=== PATIENT | female | born 1950 | race Caucasian/White ===

== ENCOUNTER → 2018-03-13 12:22 | Outpatient (CLI) | payer MEDICARE, OTHER, SELFPAY ==
[2018-03-13 15:51] LABS: Absolute Lymphocyte Count 1.84 X10^3/ul (0.83-4.51); Absolute Neutrophil Count 3.9 X10^3/uL (2.0-7.7); Basophil# 0.04 X10^3/uL; Basophil% 0.6 % (0-1); Eosinophil# 0.05 X10^3/uL; Eosinophils% 0.8 % (0-5); Hematocrit 41.6 % (37-47); Hemoglobin 13.8 g/dl (12.0-15.0); Lymphocyte # 1.84 X10^3/ul (4.0); Lymphocyte % 29.1 % (19-41); Mean Corp Hgb Conc 33.2 g/gl (32-36); Mean Corpuscular Hgb 30.8 pg (27.0-32.0); Mean Corpuscular Volume 92.9 fL (81-99); Mean Platelet Vol. 11.9 fl (6.2-12.0); Monocyte# 0.46 X10^3/uL; Monocyte% 7.3 % (0-10); Neutrophil # 3.92 X10^3/uL (2.7-7.7); Platelet Count 232 K/mm3 (150-450); RBC Distribution Width CV 12.8 % (11.6-14.6); RBC Distribution Width SD 42.7 fl (35.1-43.9); Red Blood Count 4.48 M/mm3 (4.2-5.4); White Blood Count 6.3 K/mm3 (4.4-11.0)
[2018-03-13 16:00] LABS: POSITIVE COUNT NO; POSITIVE DIFFERENTIAL NO; POSITIVE MORPHOLOGY NO
[2018-03-13 16:03] LABS: AST(SGOT) 21 U/L (15-37); Alanine Aminotransfer ALT/SGPT 24 U/L (13-56); Albumin, Serum 3.9 g/dL (3.2-5.0); Alkaline Phosphatase 74 U/L (45-117); Anion Gap 9 (5-15); BUN 14 mg/dL (7-18); BUN/Creat Ratio 15.6 RATIO (10-20); Chloride 104 mmol/L (98-107); Cholesterol 176 mg/dL (200); EST Glomerular Filtration Rate 66 mL/min (>60); Est Glom Filt Rate - Afr Amer 80 mL/min (>60); Ferritin 87 ng/mL (8-252); Globulin 3.9 g/dL (2.2-4.2); Glucose 88 mg/dL (74-106); High Density Lipoprotein 52 mg/dL; Iron 64 ug/dL (50-170); Potassium 4.3 mmol/L (3.5-5.1); Protein, Total 7.8 g/dL (6.4-8.2); Sodium Level 142 mmol/L (136-145); Triglycerides 125 mg/dL; Very Low Density Lipoprotein 25 mg/dL (5-40)
[2018-03-14 09:49] LABS: Vitamin B12 574 pg/mL (211-911)
== END ==
PROVIDERS: Family Provider Family Medicine; PCP Family Medicine; Visit Provider Family Medicine
DX: Z00.01 Encounter for general adult medical examination with abnormal findings (principal); I10 Essential (primary) hypertension; D64.9 Anemia, unspecified
CPT/HCPCS: 36415; 80053; 80061; 82607; 82728; 83540; 85025

== ENCOUNTER → 2018-11-26 06:56 | Outpatient (CLI) | payer MEDICARE, OTHER, SELFPAY ==
[2018-10-31 09:11] VITALS: BMI 33.8
--- NOTE | 2018-11-26 07:03 | BI_ITS ---
MAMMOGRAPHY - BILATERAL SCREENING 3-D TOMOSYNTHESIS REASON FOR EXAM: Female, 68 years old. Bilateral Screening 3-D tomosynthesis PERTINENT HISTORY: No significant family history. TECHNIQUE: 2-D mammograms and 3-D Tomosynthesis of the breast (s) were performed. CAD was performed. COMPARISON: February 01, 2017 FINDINGS: The breast composition is composed of scattered fibroglandular density. Scattered benign calcifications are seen. No dense spiculated masses or suspicious microcalcifications are identified. No architectural distortion is identified. There is no skin thickening or retraction. There has been no significant change since the prior study. BI/SCREEN MAMM (CAD) W/NIC BILAT IMPRESSION: No mammographic signs of malignancy. Routine yearly mammograms recommended. ASSESSMENT CATEGORY: BIRADS Category 1: Negative. A letter regarding these results will be sent to the patient by the facility within 30 days. FOLLOW UP RECOMMENDATION: Yearly follow up mammogram recommended. (A) Approximately 10% of breast cancers are not detected by mammography. A normal mammogram should not delay biopsy of a clinically suspicious abnormality. Electronically Signed: Kirit Solares MD at 12:42 EDT , Service support ,
== END ==
PROVIDERS: Family Provider Family Medicine; PCP Family Medicine; Referring Provider Nurse Practitioner Women's Health; Visit Provider Nurse Practitioner Women's Health
DX: Z12.31 Encounter for screening mammogram for malignant neoplasm of breast (principal)
CPT/HCPCS: 77063; 77067

== ENCOUNTER → 2019-03-19 12:30 | Outpatient (CLI) | payer MEDICARE, OTHER, SELFPAY ==
[2018-10-31 09:11] VITALS: BMI 33.8
[2019-03-19 13:48] LABS: Absolute Lymphocyte Count 1.94 X10^3/uL (0.83-4.51); Absolute Neutrophil Count 4.5 X10^3/uL (2.0-7.7); Basophil# 0.05 X10^3/uL; Basophil% 0.7 % (0-1); Eosinophil# 0.04 X10^3/uL; Eosinophils% 0.6 % (0-5); Hematocrit 40.7 % (37-47); Hemoglobin 13.5 g/dL (12.0-15.0); Lymphocyte # 1.94 X10^3/ul (4.0); Lymphocyte % 27.4 % (19-41); Mean Corp Hgb Conc 33.2 g/dL (32-36); Mean Corpuscular Hgb 30.5 pg (27.0-32.0); Mean Corpuscular Volume 92.1 fL (81-99); Mean Platelet Vol. 11.1 fl (6.2-12.0); Monocyte# 0.56 X10^3/uL; Monocyte% 7.9 % (0-10); NRBC Flagged by Analyzer 0 % (0-5); Neutrophil # 4.46 X10^3/uL (2.7-7.7); Neutrophil % 63.1 % (47-70); Platelet Count 254 K/mm3 (150-450); RBC Distribution Width CV 12.7 % (11.6-14.6); RBC Distribution Width SD 42.6 fl (35.1-43.9); Red Blood Count 4.42 M/mm3 (4.2-5.4); White Blood Count 7.1 K/mm3 (4.4-11.0)
[2019-03-19 14:01] LABS: AST(SGOT) 22 U/L (15-37); Alanine Aminotransfer ALT/SGPT 23 U/L (13-56); Albumin, Serum 3.9 g/dL (3.2-5.0); Alkaline Phosphatase 76 U/L (45-117); Anion Gap 5 (5-15); BUN 15 mg/dL (7-18); BUN/Creat Ratio 17.7 RATIO (10-20); Calcium,Total 8.7 mg/dL (8.5-10.1); Chloride 105 mmol/L (98-107); Cholesterol 173 mg/dL (200); Creatinine, Serum 0.85 mg/dL (0.55-1.02); EST Glomerular Filtration Rate 71 mL/min (>60); Est Glom Filt Rate - Afr Amer 86 mL/min (>60); Globulin 3.8 g/dL (2.2-4.2); Glucose 91 mg/dL (74-106); High Density Lipoprotein 51 mg/dL; Protein, Total 7.7 g/dL (6.4-8.2); Sodium Level 138 mmol/L (136-145); Triglycerides 133 mg/dL; Very Low Density Lipoprotein 27 mg/dL (5-40)
[2019-03-19 17:52] LABS: Microalbumin,Random Urine 15.7 mg/L (NO RANGE EST.); Microalbumin:Creatinine Ratio 12.5 mg/g CRE (<30 mg/g CRE)
== END ==
PROVIDERS: Family Provider Family Medicine; PCP Family Medicine; Referring Provider Family Medicine; Visit Provider Family Medicine
DX: I10 Essential (primary) hypertension (principal); Z51.81 Encounter for therapeutic drug level monitoring
CPT/HCPCS: 36415; 80053; 80061; 82043; 82570; 85025

== ENCOUNTER → 2020-06-01 08:54 | Outpatient (CLI) | payer MEDICARE, OTHER, SELFPAY ==
[2020-05-06 09:09] VITALS: BMI 37.1
[2020-06-01 12:29] LABS: Absolute Lymphocyte Count 1.93 X10^3/uL (0.83-4.51); Absolute Neutrophil Count 3.8 X10^3/uL (2.0-7.7); Basophil# 0.06 X10^3/uL; Basophil% 0.9 % (0-1); Eosinophil# 0.06 X10^3/uL; Eosinophils% 0.9 % (0-5); Hematocrit 41.7 % (37-47); Hemoglobin 13.1 g/dL (12.0-15.0); Lymphocyte # 1.93 X10^3/ul (4.0); Mean Corp Hgb Conc 31.4 g/dL (32-36); Mean Corpuscular Hgb 29.9 pg (27.0-32.0); Mean Corpuscular Volume 95.2 fL (81-99); Mean Platelet Vol. 11.5 fl (6.2-12.0); Monocyte# 0.62 X10^3/uL; Monocyte% 9.6 % (0-10); NRBC Flagged by Analyzer 0 % (0-5); Neutrophil # 3.76 X10^3/uL (2.7-7.7); Neutrophil % 58.4 % (47-70); Platelet Count 280 K/mm3 (150-450); RBC Distribution Width CV 12.7 % (11.6-14.6); RBC Distribution Width SD 44.7 fl (35.1-43.9); Red Blood Count 4.38 M/mm3 (4.2-5.4); White Blood Count 6.4 K/mm3 (4.4-11.0)
[2020-06-01 12:36] LABS: AST(SGOT) 14 U/L (15-37); Alanine Aminotransfer ALT/SGPT 17 U/L (13-56); Albumin, Serum 3.9 g/dL (3.2-5.0); Alkaline Phosphatase 74 U/L (45-117); Anion Gap 7 (5-15); BUN 19 mg/dL (7-18); BUN/Creat Ratio 24.4 RATIO (10-20); Calcium,Total 9.3 mg/dL (8.5-10.1); Chloride 105 mmol/L (98-107); Cholesterol 161 mg/dL (200); Creatinine, Serum 0.78 mg/dL (0.55-1.02); EST Glomerular Filtration Rate 78 mL/min (>60); Est Glom Filt Rate - Afr Amer 94 mL/min (>60); Globulin 3.8 g/dL (2.2-4.2); Glucose 94 mg/dL (74-106); High Density Lipoprotein 54 mg/dL; Potassium 4.7 mmol/L (3.5-5.1); Protein, Total 7.7 g/dL (6.4-8.2); Sodium Level 141 mmol/L (136-145); Triglycerides 98 mg/dL; Very Low Density Lipoprotein 20 mg/dL (5-40)
[2020-06-01 14:05] LABS: Vitamin D,25 Hydroxy 18.5 ng/mL
[2020-06-01 15:43] LABS: Microalbumin,Random Urine 14.6 mg/L (NO RANGE EST.); Microalbumin:Creatinine Ratio 15.3 mg/g CRE (<30 mg/g CRE)
== END ==
PROVIDERS: PCP Family Medicine; Visit Provider Family Medicine
DX: I10 Essential (primary) hypertension (principal); M85.80 Other specified disorders of bone density and structure, unspecified site; Z51.81 Encounter for therapeutic drug level monitoring
CPT/HCPCS: 36415; 80053; 80061; 82043; 82306; 82570; 85025

== ENCOUNTER 2020-10-08 17:25 | Outpatient (RCR) | payer MEDICARE, OTHER, SELFPAY ==
[2020-05-06 09:09] VITALS: BMI 37.1
[2020-10-08] MEDS: COVID-19 VACC, MRNA(PFIZER)/PF 30 MCG/0.3 ML SYRINGE IM (10:10)
[2020-10-29] MEDS: COVID-19 VACC, MRNA(PFIZER)/PF 30 MCG/0.3 ML SYRINGE IM (10:04)
== END 2020-10-08 23:59 ==
LOC: IMMUN 17:25
PROVIDERS: PCP Family Medicine; Referring Provider Family Medicine; Visit Provider Family Medicine
DX: Z23 Encounter for immunization (principal)
CPT/HCPCS: 0001A; 0002A

== ENCOUNTER → 2020-11-30 08:32 | Outpatient (CLI) | payer MEDICARE, OTHER, SELFPAY ==
[2020-11-05 12:53] VITALS: BMI 36.1
--- NOTE | 2020-11-30 08:39 | BI_ITS ---
MAMMOGRAPHY - BILATERAL SCREENING REASON FOR EXAM: Female, 70 years old. Routine annual screening examination. PERTINENT HISTORY: Non-contributory. TECHNIQUE: Digital bilateral breast nic (3D mammographic acquisition) in the CC and MLO projections. 2-D mediolateral oblique (MLO) and craniocaudad (CC) views of both breasts were obtained. CAD: Full Field Digital Mammography with Computer Added Detection was performed. COMPARISON: Comparison is made with prior study dated 11/26/2018. FINDINGS: Breast Composition: There are scattered areas of fibroglandular density. There are no dominant masses or suspicious calcifications. Stable benign-appearing bilateral axillary lymph node. No other significant abnormalities are identified. There has been no significant change since the prior study. BI/SCRN MAMM (CAD)W/NIC BILAT IMPRESSION: Stable bilateral screening mammogram. Yearly follow-up mammogram recommended. (A) ASSESSMENT CATEGORY: BIRADS Category 2: Benign. A letter regarding these results will be sent to the patient by the facility within 30 days. Approximately 10% of breast cancers are not detected by mammography. A normal mammogram should not delay biopsy of a clinically suspicious abnormality. [id number] Electronically Signed: Moses Elliott MD at 9:24 EDT , Service support ,
== END ==
PROVIDERS: PCP Family Medicine; Referring Provider Nurse Practitioner Women's Health; Visit Provider Nurse Practitioner Women's Health
DX: Z12.31 Encounter for screening mammogram for malignant neoplasm of breast (principal)
CPT/HCPCS: 77063; 77067

== ENCOUNTER 2021-07-19 10:00 | Outpatient (RCR) | payer MEDICARE, OTHER, SELFPAY ==
--- NOTE | 2021-05-31 11:37 | HP.PTEVAL_ITS ---
Patient's Visit Information ITA MARY is a 70 year old F referred to Physical Therapy by OLIVE Ho with a diagnosis of B shoulder Impingement. Date of Evaluation: 05/31/21 Physical Therapist: IFTIKHAR Fisher - Visit Plan Frequency: 2x /Week Duration: 4 Weeks Plan: 2X/ week for 3-4 weeks for scapular and postural strength, RC strengthening, with HEP. HEP: orange mid rows, corner stretch, Double ER with orange band - Subjective Pt went to and did ex-rays and has a little bit of arthritis. Dr said could have RC tear but most people over 60 have it. She has had B cortizone shots 10 days ago but she can do things now but it is not perfect. Putting things over her head, reach in freezer, grabbing for seatbelt, pulling vaccum back, pulling into mircrowave all hurt. Now she can sleep but could not before. Her L shoulder is worse than the R and she is R handed. She was lifting repetive totes about 8 weeks ago and that it what the Dr thinks started it all up. She can sleep on B shoulders and does feel it and shifts positions. She has some N&t a few times but not consistent. No neck pain. - Pain B shoulder pain Pain Intensity (Out of 10): 0 Comment: with movement 10 - Objective R handed R 40# and L 40#. B shoulder flexion approx 160 degrees B, B shoulder abd approx 165 degrees, R T8 and L T12 IR, and B shoulder ER WFL. +HK and test for impingement test on the L. Very slight if any on the R. R shoulder MMT: flex 4/5, abd 4-/5, IR 4/5, ER 4-/5. L shld MMT: flex 4-/5, abd 4-/5, ER 4-/5 and IR 4/5. Pt was tender to palpation under B acromin. Posture: rounded shoulders - Balance/Special Test Scores Quick DASH Score: 25.0000 - Goals Goal 1:: I HEP Goal Time Frame: 2-4 Weeks Goal 2:: Decrease freq of L shoulder bothering her with ADL's such as reaching, putting on seatbelt and laying on the L side in bed by 50% or 2/10. Goal Time Frame: 2-4 Weeks Goal 3:: Sit with upright posture during treatment sessions - Rehabilitation Potential Rehabilitation Potential: Good - Anticipated Interventions Patient/Client Instruction: Educate patient on: Condition, Plan of Care For the Purpose of:: To decrease pain, To increase ROM, To improve nutrient delivery to tissue, To improve muscle performance and motor function, To improve ability to perform ADL's, To increase tolerance to activity/condition/position, To improve performance and independence with ADL's, To improve health of tissue, To decrease soft tissue restriction, To increase flexibility/ROM Therapeutic Exercise to Include: Strength training, Postural training, Flexibilty training, Passive ROM, Active ROM, Scapular Strength/Stabilization For the Purpose of:: To decrease pain, To increase ROM, To improve nutrient delivery to tissue, To improve muscle performance and motor function, To improve ability to perform ADL's, To increase tolerance to activity/condition/position, To improve performance and independence with ADL's, To improve health of tissue, To decrease soft tissue restriction Manual Therapy Techniques to Include: Passive ROM, Soft tissue mobilization For the Purpose of:: To decrease pain, To increase ROM Thank you for the opportunity to evaluate your patient. For Medicare and Medicare HMO plans, please review the plan of care and approve it. It will need to be FAXED BACK to us at [phone] for Medicare purposes. For Medicare only, by signing this I certify the plan of care. Please let me know if there are questions or concerns regarding this plan of care. Physician Signatu re: Date:
--- NOTE | 2021-07-19 10:30 | HP.PTDCSUM ---
It has been my pleasure to treat ITA MARY referred by OLIVE Ho, with the diagnosis of B shoulder Impingement for a total of 16 visit(s). Discharge Date: 07/19/21 Please see the following information for a summary of their discharge status. Subjective: Occ she gets numbness in the L hand but it does not last long but was not getting that before. Pt wants to keep doing her HEP and if it is not better by the begining of the year she will go back to the Dr and get an MRI. She struggles with reaching into a cupboard with her L shoulder but not on her R side. B shoulder pain Pain Intensity (Out of 10): 3 L shoulder Pain Intensity (Out of 10): 3 R shoulder Pain Intensity (Out of 10): 1 % Improvement: 80 Objective/Function: Pain on the L with resisted motion and pain with full AROM abduction and flexion on the L. Pt has full AROM B shoulder flexion some tightness and pain at end range abd and ER. Pt has increase pain on the L with MMT of the L ER (3+), FLEX(4-), ABD(3+), IR (4-) Goal 1:: I HEP Goal Progress: Goal Met Goal 2:: Decrease freq of L shoulder bothering her with ADL's such as reaching, putting on seatbelt and laying on the L side in bed by 50% or 2/10. Goal Progress: Goal Met Goal 3:: Sit with upright posture during treatment sessions Goal Progress: Goal Met Plan: DC PT to HEP Discharge Comments: DC PT to HEP If there are questions or concerns regarding this patient's physical therapy, please feel free to call me at [phone]. Thank you for the referral of this patient. Sincerely, Zonia Tirado, MPT Balance/Gait/Functional tests - Balance/Special Test Scores Quick DASH Score: 29.5450
== END 2021-07-19 19:00 | disposition home or self-care (01) ==
LOC: PT 10:00
PROVIDERS: PCP Family Medicine; Visit Provider Physician Assistant
DX: M25.811 Other specified joint disorders, right shoulder (principal); M25.812 Other specified joint disorders, left shoulder
CPT/HCPCS: 97035; 97110; 97161; 97530

== ENCOUNTER → 2022-06-10 | Outpatient (CLI) | payer MEDICARE, OTHER, SELFPAY ==
--- NOTE | 2022-06-10 10:26 | BI_ITS ---
MAMMOGRAPHY - BILATERAL SCREENING REASON FOR EXAM: Female, 71 years old. Routine annual screening examination. PERTINENT HISTORY: Non-contributory. TECHNIQUE: Digital bilateral breast nic (3D mammographic acquisition) in the CC and MLO projections. 2-D mediolateral oblique (MLO) and craniocaudad (CC) views of both breasts were obtained. CAD: Full Field Digital Mammography with Computer Added Detection was performed. COMPARISON: Comparison is made with prior study dated 11/30/2020 and 11/26/2018. FINDINGS: Breast Composition: There are scattered areas of fibroglandular density. There are no dominant masses or suspicious calcifications. Stable small benign-appearing bilateral axillary lymph nodes. No other significant abnormalities are identified. There has been no significant change since the prior study. BI/SCRN MAMM (CAD)W/NIC BILAT IMPRESSION: Stable bilateral screening mammogram. Yearly follow-up mammogram recommended. (A) ASSESSMENT CATEGORY: BIRADS Category 2: Benign. A letter regarding these results will be sent to the patient by the facility within 30 days. Approximately 10% of breast cancers are not detected by mammography. A normal mammogram should not delay biopsy of a clinically suspicious abnormality. [id number] Electronically Signed: Moses Elliott MD at 12:24 EDT ,
== END | disposition home or self-care (01) ==
LOC: OPBI 10:25
PROVIDERS: PCP Family Medicine; Referring Provider Nurse Practitioner Women's Health; Visit Provider Nurse Practitioner Women's Health
DX: Z12.31 Encounter for screening mammogram for malignant neoplasm of breast (principal)
CPT/HCPCS: 77063; 77067

== ENCOUNTER → 2022-08-09 | Outpatient (CLI) | payer MEDICARE, OTHER, SELFPAY ==
[2022-08-09 12:21] LABS: Absolute Lymphocyte Count 2.19 X10^3/uL (0.83-4.51); Absolute Neutrophil Count 4.7 X10^3/uL (2.0-7.7); Basophil# 0.06 X10^3/uL; Basophil% 0.8 % (0-1); Eosinophil# 0.13 X10^3/uL; Eosinophils% 1.6 % (0-5); Hematocrit 43.5 % (37-47); Hemoglobin 14.7 g/dL (12.0-15.0); Lymphocyte # 2.19 X10^3/ul (0.83-4.51); Lymphocyte % 27.6 % (19-41); Mean Corp Hgb Conc 33.8 g/dL (32-36); Mean Corpuscular Hgb 31.4 pg (27.0-32.0); Mean Corpuscular Volume 92.9 fL (81-99); Mean Platelet Vol. 11.3 fl (6.2-12.0); Monocyte# 0.79 X10^3/uL; NRBC Flagged by Analyzer 0 % (0-5); Neutrophil # 4.74 X10^3/uL (2.7-7.7); Neutrophil % 59.7 % (47-70); Platelet Count 306 K/mm3 (150-450); RBC Distribution Width CV 12.7 % (11.6-14.6); RBC Distribution Width SD 43.6 fl (35.1-43.9); Red Blood Count 4.68 M/mm3 (4.2-5.4); White Blood Count 7.9 K/mm3 (4.4-11.0)
[2022-08-09 12:58] LABS: AST(SGOT) 19 U/L (15-37); Alanine Aminotransfer ALT/SGPT 28 U/L (13-56); Albumin, Serum 3.8 g/dL (3.2-5.0); Alkaline Phosphatase 85 U/L (45-117); Anion Gap 7 (5-15); BUN 18 mg/dL (7-18); BUN/Creat Ratio 21.8 RATIO (10-20); Calcium,Total 9.7 mg/dL (8.5-10.1); Chloride 103 mmol/L (98-107); Cholesterol 211 mg/dL (200); Creatinine, Serum 0.83 mg/dL (0.55-1.02); EST Glomerular Filtration Rate 72 mL/min (>60); Est Glom Filt Rate - Afr Amer 87 mL/min (>60); Globulin 3.9 g/dL (2.2-4.2); Glucose 103 mg/dL (74-106); High Density Lipoprotein 52 mg/dL; Potassium 4.8 mmol/L (3.5-5.1); Protein, Total 7.7 g/dL (6.4-8.2); Sodium Level 139 mmol/L (136-145); Triglycerides 171 mg/dL; Very Low Density Lipoprotein 34 mg/dL (5-40)
== END | disposition home or self-care (01) ==
LOC: BFHLAB 09:03
PROVIDERS: PCP Family Medicine; Visit Provider Family Medicine
DX: I10 Essential (primary) hypertension (principal)
CPT/HCPCS: 36415; 80053; 80061; 85025

== ENCOUNTER 2022-09-13 10:00 | Outpatient (RCR) | payer MEDICARE, OTHER, SELFPAY ==
--- NOTE | 2022-07-19 12:27 | HP.PTEVAL_ITS ---
Patient's Visit Information ITA MARY is a 72 year old F referred to Physical Therapy by Dr. Tala Garza MD with a diagnosis of MIXED URINARY INCONTINENCE. Date of Evaluation: 07/19/22 Physical Therapist: Alisia Cabral PT, Cert MDT - Visit Plan Frequency: 1x/Week Duration: 6-8 WKS Plan: URINARY URGE AND FREQUENCY EDUCATION. HEALTHY BLADDER HABBIT EDUCATION. PF STRENGTHENING. TRAINING IN COORDINATION OF PELVIC FLOOR MUSCULATURE WITH HIP AND CORE (TRANSVERSE ABDOMINUS) MUSCULATURE. POSTURE CORRECTION/STRENGTHENING. CORE STRENGTHENING. NEMESIO LE ROM, STRETCHING AND STRENGTHENING. TRAINING IN ABDOMINAL CAVITY PRESSURE MGMT WITH ADL'S. - Subjective Work/Leisure: RETIRED. Present symptoms: PATIENT REPORTS SHE IS HERE FOR LIGHT BLADDER LEAKAGE. DENIES PELVIC, BACK AND HIP PAIN. Present since: I HAVE WORN A PAD FOR YEARS BUT RECENTLY I HAVE BEEN GETTING IT MORE AT NIGHT AND IF I DON'T GET UP RIGHT AWAY I HAVE AN ACCIDENT. Pain Scale: NO. Is it getting better, worse or staying the same: GETTING WORSE. Commenced as a result of: NO APPARENT REASON. Worse: MAYBE SOME FOODS/DRINKS MAKE IT WORSE. Better: UNSURE. Disturbed sleep: YES - WAS NEEDING TO GET UP 2-3 TIMES A NIGHT TO GO BUT NOW DOWN TO ABOUT ONE TIME. Previous history/Previous treatment: NO PRIOR TREATMENTS FOR INCONTINENCE. NO BACK OR HIP SURGERIES OR INJECTIONS. Treatment this episode: DIET CHANGE RECOMMENDATIONS, ESTROGEN VAGINAL CREAM (PATIENT THINKS THIS HAS HELPED. HAS BEEN ON IT FOR 2 MONTHS). Coughing/sneezing/straining: POSITIVE FOR URINARY LEAKING AND THIS IS WHY SHE HAS WORN A PAD FOR YEARS. Gait: NORMAL. Bowel INCONTINENCE: NO. Unexplained weight loss: NO. Imaging: ABDOMINAL US AND URINALYSIS - NORMAL PER PATIENT REPORT. - Objective Sitting/Standing Posture: REDUCED LUMBAR LORDOSIS. NO RELEVENT LATERAL SHIFT. Other Observations: INDEP GAIT AND TRANSFERS. Sensory deficit: NEMESIO LE LIGHT TOUCH SENSATION IS GROSSLY INTACT AND SYMMETRICAL. ROM deficit: TIGHT NEMESIO HIPS ALL PLANES. PATIENT ALSO WITH TIGHT NEMESIO HS'S AND GASTROC SOLEUS COMPLEX'S. Motor deficit: NEMESIO LE'S GROSSLY 5/5 WITH MMT'ING EXCEPT HIPS 4/5. Dural Signs: NEGATIVE NEMESIO LE'S. Lumbar mvmt loss: flex - MIN. ext - LEATHA. R SG - LEATHA. L SG - LEATHA. PATIENT DENIES PAIN WITH LUMBAR ROM TESTING ALL PLANES. Core strength: POOR. Palpation: NO EXTERNAL PELVIC TENDERNESS. MANUAL INTERNAL VAGINAL PELVIC FLOOR EXAM REVEALS 3/5 STRENGTH WITH 4 SEC ENDURANCE AND NO TENDERNESS WITH PF PALPATION. FUNCTIONAL SCREEN: Incontinence Impact Questionnaire Score: 0. Urogenital Distress Inventory Score: 5. TREATMENT: HEP INSTRUCTION IN KEGEL QUICK FLICKS X 8, 3 TIMES A DAY. WRITTEN HEP PROVIDED. INSTRUCTED NOT TO DO KEGELS DURING MICTURITION. - Goals Goal 1:: DECREASE URINARY LEAKAGE EPISODES TO ONE OR LESS PER DAY/NIGHT Goal Time Frame: 6-8 Weeks Goal 2:: PATIENT WILL SUCCESSFULLY DELAY VOIDING FOR 60 MINUTES WHEN URGENCY OCCURS Goal Time Frame: 4-6 Weeks Goal 3:: PATIENT WILL HAVE INCREASED PELVIC FLOOR MUSCLE STRENGTH GRADE TO 5/5 Goal Time Frame: 4-6 Weeks Goal 4:: PATIENT WILL DEMONSTRATE 10 CONSISTENT AND CONSECUTIVE 10 SECOND PELVIC FLOOR MUSCLE CONTRACTIONS TO DEMONSTRATE IMPROVED PELVIC FLOOR ENDURANCE. Goal Time Frame: 6-8 Weeks Goal 5:: DEVELOP HEALTHY FLUID INTAKE HABITS WITH FLUID INTAKE OF ? BODY WEIGHT IN OUNCES PER DAY AND 2/3 BEING WATER. NORMALIZE VOIDING FREQUENCEY TO EVERY 3- 4 HOURS. Goal Time Frame: 2-4 Weeks Goal 6:: PATIENT WILL BE INDEP WITH A HEP/HOME INSTRUCTIONS FOR CONTINUED IMPROVEMENT ONCE FORMAL PHYSICAL THERAPY CONCLUDES. Goal Time Frame: 6-8 Weeks - Anticipated Interventions Patient/Client Instruction: Educate patient on: Condition, Plan of Care, Risk Factors For the Purpose of:: To improve self management Therapeutic Exercise to Include: Strength training, Endurance training, Postural training, Flexibilty training, Neuromotor development For the Purpose of:: To increase ROM, To improve muscle performance and motor function, To increase tolerance to activity/condition/position Thank you for the opportunity to evaluate your patient. For Medicare and Medicare HMO plans, please review the plan of care and approve it. It will need to be FAXED BACK to us at [phone] for Medicare purposes. For Medicare only, by signing this I certify the plan of care. Please let me know if there are questions or concerns regarding this plan of care. Physician Signature: Date:
--- NOTE | 2022-09-13 10:40 | HP.PTDCSUM_ITS ---
It has been my pleasure to treat ITA MARY referred by Dr. Tala Garza MD, with the diagnosis of MIXED URINARY INCONTINENCE for a total of 8 visit(s). Discharge Date: 09/13/22 Please see the following information for a summary of their discharge status. Subjective: PATIENT REPORTS SHE IS NOT HAVING LEAKING DURING THE DAY EVEN WITH SNEEZING NOW. ALSO REPORTS SHE IS ONLY GETTING UP TO URINATE ONE TIME PER NIGHT NOW. REPORTS COMPLIANCE WITH HEP. VOIDING 6-7 TIMES A DAY NOW AT 3-4 HOUR INTERVALS. PATIENT REPORTS SHE IS NOT LEAKING IN BED AND NOT WORRIED ABOUT GETTING TO THE BATHROOM IN TIME ANYMORE. % Improvement: 75 Objective/Function: THIS PATIENT HAS MADE GOOD PROGRESS WITH PHYSICAL THERPAY IS APPROPRIATE FOR D/C TO INDEP EX AT THIS TIME. PATIENT IS AGREEABLE AND DELCINED PELVIC TESTING TODAY STATING HER SYMPTOMS ARE BETTER. FUNCTIONAL SCREEN: Incontinence Impact Questionnaire Score: 0. Urogenital Distress Inventory Score: 2 Goal 1:: DECREASE URINARY LEAKAGE EPISODES TO ONE OR LESS PER DAY/NIGHT Goal Progress: Goal Met Goal 2:: PATIENT WILL SUCCESSFULLY DELAY VOIDING FOR 60 MINUTES WHEN URGENCY OCCURS Goal Progress: Goal Met Goal 3:: PATIENT WILL HAVE INCREASED PELVIC FLOOR MUSCLE STRENGTH GRADE TO 5/5 Goal Progress: SUBJECTIVELY HAS IMPROVED Goal 4:: PATIENT WILL DEMONSTRATE 10 CONSISTENT AND CONSECUTIVE 10 SECOND PELVIC FLOOR MUSCLE CONTRACTIONS TO DEMONSTRATE IMPROVED PELVIC FLOOR ENDURANCE. Goal Progress: HAS BEEN MET SUBJECTIVELY Goal 5:: DEVELOP HEALTHY FLUID INTAKE HABITS WITH FLUID INTAKE OF ? BODY WEIGHT IN OUNCES PER DAY AND 2/3 BEING WATER. NORMALIZE VOIDING FREQUENCEY TO EVERY 3- 4 HOURS. Goal Progress: Goal Met Goal 6:: PATIENT WILL BE INDEP WITH A HEP/HOME INSTRUCTIONS FOR CONTINUED IMPROVEMENT ONCE FORMAL PHYSICAL THERAPY CONCLUDES. Goal Progress: Goal Met Plan: D/C TO INDEP EX. PATIENT AGREEABLE. If there are questions or concerns regarding this patient's physical therapy, please feel free to call me at [phone]. Thank you for the referral of this patient. Sincerely, Alisia Cabral, PT, Cert MDT
== END 2022-09-13 12:39 | disposition home or self-care (01) ==
LOC: PT 10:00
PROVIDERS: PCP Family Medicine; Referring Provider Urology; Visit Provider Urology
DX: N39.46 Mixed incontinence (principal); I10 Essential (primary) hypertension
CPT/HCPCS: 36415; 80053; 80061; 85025; 97162; 97164; 97530

== ENCOUNTER → 2023-08-14 | Outpatient (CLI) | payer MEDICARE, OTHER, SELFPAY ==
--- NOTE | 2023-08-14 12:17 | BI_ITS ---
MAMMOGRAPHY - BILATERAL SCREENING REASON FOR EXAM: Female, 73 years old. Routine annual screening examination. PERTINENT HISTORY: Non-contributory. TECHNIQUE: Digital bilateral breast nic (3D mammographic acquisition) in the CC and MLO projections. 2-D mediolateral oblique (MLO) and craniocaudad (CC) views of both breasts were obtained. CAD: Full Field Digital Mammography with Computer Added Detection was performed. COMPARISON: Comparison is made with prior study dated June 10, 2022 and November 30, 2020. FINDINGS: Breast Composition: There are scattered areas of fibroglandular density. There are no dominant masses or suspicious calcifications. No other significant abnormalities are identified. There has been no significant change since the prior study. BI/SCRN MAMM (CAD)W/NIC BILAT IMPRESSION: Stable bilateral screening mammogram. Yearly follow-up mammogram recommended. (A) ASSESSMENT CATEGORY: BIRADS Category 1: Negative. A letter regarding these results will be sent to the patient by the facility within 30 days. Approximately 10% of breast cancers are not detected by mammography. A normal mammogram should not delay biopsy of a clinically suspicious abnormality. [id number] Electronically Signed: Moses Elliott MD at 9:15 EST ,
--- OUTSIDE RECORDS SUMMARY | 2023-08-14 12:28 | XMS RPT_ITS | CCD ---
Author Name Unknown Address [address] [place] [address] Organization [facility] Care Team Providers Care Hand Tier Name Role Phone MAXIMILIANO, JUANA (BILLET HEATER OPERATOR) Unavailable Unavailable MAXIMILIANO, JUANA (BILLET HEATER OPERATOR) Unavailable Unavailable MAXIMILIANO, JUANA (BILLET HEATER OPERATOR) Unavailable Unavailable Allergies Allergy Classification Reported Allergen(s) Allergy Type Date of Onset Reaction(s) Facility (1 source) OTHER; Translations: [OTHER] Propensity to adverse reactions (disorder) 9 [facility] Repository Problems Active Problems Problem Classification Problem Date Documented Da te Episodic/Chronic Menopausal disorders (1 source) Menopausal and female climacteric states; Translations: [Menopausal and female climacteric states] Onset: 02-20-2017 Chronic Past or Other Problems Problem Classification Problem Date Documented Da te Episodic/Chronic Unclassified (1 source) Encounter for screening mammogram for malignant neoplasm of breast; Translations: [Encounter for screening mammogram for malignant neoplasm of breast] Onset: 02-01-2017 Episodic Results Test Name Value Interpretation Reference Range Facil ity Encounters Encounter Date Encounter Type Care Provider Facility Start: 02-20-2017 End: 02-20-2017 Ambulatory JUANA (BILLET HEATER OPERATOR) [facility] Start: 02-01-2017 End: 02-02-2017 Ambulatory JUANA (BILLET HEATER OPERATOR) [facility] Summary Purpose Family History No Family History Records Found Advance Directives No Advanced Directives Records Found Additional Source Comments INFORMATION SOURCE (unrecogn ized section and content) FOR RECORDS PERTAINING TO PATIENTS WHO ARE OR HAVE BEEN ENROLLED IN A CHEMICAL DEPENDENCY/SUBSTANCEABUSE PROGRAM, SOME INFORMATION MAY BE OMITTED. This clinical summary was aggregated from multiple sources. Caution should be exercised in using it in the provision of clinical care. This summary normalizes information from multiple sources, and as a consequence, information in this document may materially change the coding, format and clinical context of patient data. In addition, data may be omitted in some cases. CLINICAL DECISIONS SHOULD BE BASED ON THE PRIMARY CLINICAL RECORDS. [facility] Similar Pages [facility]. provides no warranty or guarantee of the accuracy or completeness of information in this document.
== END | disposition home or self-care (01) ==
LOC: OPBI 12:16
PROVIDERS: PCP Family Medicine; Referring Provider Nurse Practitioner Women's Health; Visit Provider Nurse Practitioner Women's Health
DX: Z12.31 Encounter for screening mammogram for malignant neoplasm of breast (principal)
CPT/HCPCS: 77063; 77067

== ENCOUNTER → 2024-07-11 | Outpatient (CLI) | payer MEDICARE, OTHER, SELFPAY ==
[2024-07-11 17:55] LABS: Absolute Neutrophil Count 5.4 X10^3/uL (2.0-7.7); Basophil# 0.08 X10^3/uL; Basophil% 0.9 % (0-1); Eosinophils% 1.2 % (0-5); Hematocrit 43.1 % (37-47); Hemoglobin 14.1 g/dL (12.0-15.0); Lymphocyte % 24.9 % (19-41); Mean Corp Hgb Conc 32.7 g/dL (32-36); Mean Corpuscular Hgb 30.1 pg (27.0-32.0); Mean Corpuscular Volume 91.9 fL (81-99); Monocyte# 0.68 X10^3/uL; Monocyte% 8.1 % (0-10); NRBC Flagged by Analyzer 0 % (0-5); Neutrophil # 5.44 X10^3/uL (2.7-7.7); Neutrophil % 64.5 % (47-70); Platelet Count 308 K/mm3 (150-450); RBC Distribution Width CV 12.6 % (11.6-14.6); RBC Distribution Width SD 42.4 fl (35.1-43.9); Red Blood Count 4.69 M/mm3 (4.2-5.4); White Blood Count 8.4 K/mm3 (4.4-11.0)
[2024-07-11 18:37] LABS: ALB/GLOB Ratio 1.1 RATIO (0.9-2.4); AST(SGOT) 18 U/L (15-37); Alanine Aminotransfer ALT/SGPT 20 U/L (13-56); Alkaline Phosphatase 72 U/L (45-117); Anion Gap 6 (5-15); BUN 14 mg/dL (7-18); BUN/Creat Ratio 16.1 RATIO (10-20); Calcium,Total 9.4 mg/dL (8.5-10.1); Chloride 103 mmol/L (98-107); Cholesterol 171 mg/dL (200); Creatinine, Serum 0.87 mg/dL (0.55-1.02); EST Glomerular Filtration Rate 68 mL/min (>60); Est Glom Filt Rate - Afr Amer 82 mL/min (>60); Globulin 3.6 g/dL (2.2-4.2); Glucose 101 mg/dL (74-106); High Density Lipoprotein 49 mg/dL; Potassium 4.3 mmol/L (3.5-5.1); Protein, Total 7.6 g/dL (6.4-8.2); Sodium Level 136 mmol/L (136-145); Triglycerides 150 mg/dL; Very Low Density Lipoprotein 30 mg/dL (5-40)
== END | disposition home or self-care (01) ==
PROVIDERS: PCP Family Medicine; Referring Provider Family Medicine; Visit Provider Family Medicine
DX: I10 Essential (primary) hypertension (principal); E55.9 Vitamin D deficiency, unspecified
CPT/HCPCS: 36415; 80053; 80061; 82306; 85025

== ENCOUNTER → 2024-10-10 | Outpatient (CLI) | payer MEDICARE, OTHER, SELFPAY ==
--- NOTE | 2024-10-10 08:30 | BI_ITS ---
PROCEDURE: SCRN MAMM (CAD)W/NIC BILAT REASON FOR EXAM: F, Age 74 y/o, no family history. Routine annual follow-up. TECHNIQUE: Bilateral screening digital breast tomosynthesis with 2D and 3D images. Computer aided detection. COMPARISON: Prior exam(s) dating back to August 14, 2023.. FINDINGS: There are scattered areas of fibroglandular density. Stable examination. Stable small bilateral axillary lymph nodes. No suspicious masses, areas of developing architectural distortion, or suspicious calcifications. BI/SCRN MAMM (CAD)W/NIC BILAT IMPRESSION: BI-RADS 2: BENIGN. RECOMMEND ANNUAL MAMMOGRAPHIC SCREENING. Follow-up code: Routine Follow-up The patient will be notified of the results by letter. Reading Location: [id number]
== END | disposition home or self-care (01) ==
PROVIDERS: PCP Family Medicine; Referring Provider Nurse Practitioner Women's Health; Visit Provider Nurse Practitioner Women's Health
DX: Z12.31 Encounter for screening mammogram for malignant neoplasm of breast (principal)
CPT/HCPCS: 77063; 77067

== ENCOUNTER → 2025-04-08 | Outpatient (CLI) | payer MEDICARE, OTHER, SELFPAY ==
--- NOTE | 2025-04-08 | EMB_PTH ---
PATIENT: ITA MARY [facility] U#:[id number] AGE/SX: 74/F ROOM: RE04/08/[address]: SHIVA Morales : 1950 BED: DIS: 04/08/2025 SPEC #: [id number] RECD: 04/08/25 16:28 STATUS: DANIEL RERogelio #: [id number] RG: 04/08/25 00:[address]: Darline Hernandez NP DEPT: SURGICAL PATHOLOGY RECD BY: Jean Rios ENTERED: 04/09/25 09:45 SP TYPE: ENDOM BX/C SCOTT DR: Dr. Chris Muro, DO Tissues: A - Endometrium, NOS Procedures: Surgery Specimen Level IV HEADER OPERATION: Endometrial biopsy PRE-OP DIAGNOSIS: Post menopausal bleeding TISSUE SUBMITTED: A- Endometrial tissue MICROSCOPIC DIAGNOSIS A. Endometrium, biopsy: - Few strips of superficial columnar epithelium with cytologic atypia - see note. - Few fragments of squamous cervical mucosa with atypical features. Note: The specimen is predominantly mucus. A limited amount of tissue is present which may not be a technical services representative sampling of the endometrium. Clinical correlation is necessary and repeat biopsy for additional diagnostic material is suggested should the patient's symptoms persist, if clinically indicated. MICROSCOPIC DESCRIPTION Slides are reviewed. GROSS DESCRIPTION A. Received in formalin labeled with the patient's name and date of . Designated as EMB is a 2.5 x 2.5 x 0.2 cm aggregate of blood-tinged mucoid material with flecks of possible tissue. Entirely submitted in 1 cassette. ME 04/09/2025 CPT:50521
== END | disposition home or self-care (01) ==
LOC: LABSPEC 16:03
PROVIDERS: PCP Family Medicine; Visit Provider Nurse Practitioner Women's Health
DX: R87.610 Atypical squamous cells of undetermined significance on cytologic smear of cervix (ASC-US) (principal); N95.0 Postmenopausal bleeding
CPT/HCPCS: 88305

== ENCOUNTER → 2025-04-14 | Outpatient (CLI) | payer MEDICARE, OTHER, SELFPAY ==
--- NOTE | 2025-04-14 15:17 | US_ITS ---
PROCEDURE: PELVIC W/ TRANSVAGINAL 04/14/2025 REASON FOR EXAM: POSTMENOPAUSAL BLEEDING TECHNIQUE: Procedure Code: [id number] Modality: US Procedure: PELVIC W/ TRANSVAGINAL COMPARISON: None FINDINGS: Measurements: Uterus: 8.0 x 4.4 x 4.0 cm with a volume of 74 mL Endometrial Thickness: 4 mm Right Ovary: 4.5 x 3.6 x 2.6 with a volume of 21 mL. Left Ovary: 1.5 x 1.4 x 1.1 with a volume of 1.3 mL. Uterus: There is a heterogeneous echotexture of the myometrium of the uterus. No discrete uterine fibroids are seen however the heterogeneous echotexture could obscure a small uterine fibroid. Nabothian cysts are seen. Endometrium: Endometrium appears hyperechoic. Right ovary: There is blood flow within the right ovary. There is a benign- appearing cyst identified in the right ovary measuring 2.9 x 2.9 x 2.5 cm. Left ovary: There is blood flow within the left ovary. Contour and echogenicity are within normal limits. No masses are seen. Other: Urinary bladder measures 7.3 x 7.0 x 2.3 cm. Bladder wall volume measures 62 mL. Bladder wall is smooth. US/Pelvic w/ Transvaginal IMPRESSION: Heterogeneous echotexture of the myometrium of the uterus. Uterine fibroids co uld be obscured. Benign-appearing simple cyst right ovary. Follow-up ultrasound in 6 weeks is r ecommended for re-evaluation. Benign appearance to the left ovary. Reading Location: [id number]
== END | disposition home or self-care (01) ==
PROVIDERS: PCP Family Medicine; Referring Provider Nurse Practitioner Women's Health; Visit Provider Nurse Practitioner Women's Health
DX: N95.0 Postmenopausal bleeding (principal)
CPT/HCPCS: 76830; 76856

== ENCOUNTER → 2025-06-18 | Outpatient (CLI) | payer MEDICARE, OTHER, SELFPAY ==
[2025-06-18 10:18] LABS: Hematocrit 41.2 % (37-47); Hemoglobin 13.7 g/dL (12.0-15.0); Immature Granulocytes Count 0.040 X10^3/uL (0.0-0.0); Mean Corp Hgb Conc 33.3 g/dL (32-36); Mean Corpuscular Volume 93.2 fL (81-99); Mean Platelet Vol. 10.5 fl (6.2-12.0); NRBC Flagged by Analyzer 0 % (0-5); Platelet Count 296 K/mm3 (150-450); RBC Distribution Width CV 12.9 % (11.6-14.6); RBC Distribution Width SD 43.8 fl (35.1-43.9); Red Blood Count 4.42 M/mm3 (4.2-5.4); White Blood Count 7.2 K/mm3 (4.4-11.0)
[2025-06-18 11:02] LABS: AST(SGOT) 18 U/L (<=31); Alanine Aminotransfer ALT/SGPT 14 U/L (<=34); Albumin, Serum 4.3 g/dL (3.4-4.8); Alkaline Phosphatase 73 U/L (35-104); Anion Gap 11 (5-15); BUN 15 mg/dL (4-19); BUN/Creat Ratio 17.9 RATIO (10-20); Calcium,Total 9.4 mg/dL (7.6-11.0); Carbon Dioxide 26.1 mmol/L (21.0-32.0); Chloride 102 mmol/L (98-108); Cholesterol 201 mg/dL (<=200); Globulin 3.1 g/dL (2.2-4.2); Glucose 100 mg/dL (70-99); Low Density Lipoprotein Calc. 122 mg/dL; Potassium 4.6 mmol/L (3.3-5.1); Triglycerides 153 mg/dL; Very Low Density Lipoprotein 31 mg/dL (5-40); Vitamin D,25 Hydroxy 35.2 ng/mL (30-100); cholesterol:hdl ratio screen 3.84
== END | disposition home or self-care (01) ==
LOC: MTLAB 08:32
PROVIDERS: PCP Family Medicine; Referring Provider Family Medicine; Visit Provider Family Medicine
DX: I10 Essential (primary) hypertension (principal); E55.9 Vitamin D deficiency, unspecified
CPT/HCPCS: 36415; 80053; 80061; 82306; 85025